=== PATIENT | male | born 1975 | race Caucasian/White ===

== ENCOUNTER 2017-01-24 21:14 | Emergency (ER) | payer OTHER ==
[~2017-01-24] VITALS: Ht 165.1 cm; Wt 113.4 kg
[2017-01-24] MEDS ORDERED: LISINOPRIL40 MG PO (21:23)
[2017-01-24] MEDS ORDERED: METFORMIN500 MG PO (21:23)
[2017-01-24] MEDS ORDERED: HYDR25T PO (21:23)
[2017-01-24] MEDS ORDERED: OMEPRAZOLE40 MG PO (21:24)
[2017-01-24] MEDS ORDERED: Peridex 473 ML473 ML PO (21:28)
[2017-01-24] MEDS ORDERED: CLINDAMYCIN150 MG PO (21:28)
[2017-01-24] MEDS ORDERED: LIDOCAINE HCL100 M1 MM (21:28)
== END 2017-01-24 21:31 | disposition home or self-care (01) ==
LOC: ED 21:14
DX: K02.9 Dental caries, unspecified (principal); R03.0 Elevated blood-pressure reading, without diagnosis of hypertension; F17.200 Nicotine dependence, unspecified, uncomplicated; Z88.0 Allergy status to penicillin; Z88.6 Allergy status to analgesic agent

== ENCOUNTER 2017-02-24 21:55 | Emergency (ER) | payer OTHER ==
[~2017-02-24] VITALS: Ht 165.1 cm; Wt 117.9 kg
[~2017-02-24 21:55] MED LIST: CLINDAMYCIN150 MG PO; HYDR25T PO; LIDOCAINE HCL100 M1 MM; LISINOPRIL40 MG PO; METFORMIN500 MG PO; OMEPRAZOLE40 MG PO; Peridex 473 ML473 ML PO
[2017-02-24] MEDS ORDERED: ANAPROX DS550 MG PO (22:37)
[2017-02-24] MEDS ORDERED: ROBAXIN500 M1 PO (22:37)
== END 2017-02-24 23:35 | disposition home or self-care (01) ==
LOC: ED 21:55
DX: S16.1XXA Strain of muscle, fascia and tendon at neck level, initial encounter (principal); S50.02XA Contusion of left elbow, initial encounter; F17.200 Nicotine dependence, unspecified, uncomplicated; Z88.0 Allergy status to penicillin; Z88.6 Allergy status to analgesic agent; V49.9XXA Car occupant (driver) (passenger) injured in unspecified traffic accident, initial encounter; Y93.89 Activity, other specified; Y92.413 State road as the place of occurrence of the external cause; Y99.9 Unspecified external cause status

== ENCOUNTER 2017-03-14 20:43 | Emergency (ER) | payer OTHER ==
[~2017-03-14] VITALS: Ht 165.1 cm; Wt 117.9 kg
[~2017-03-14 20:43] MED LIST changes: +ANAPROX DS550 MG PO; +ROBAXIN500 M1 PO
[2017-03-14] MEDS ORDERED: 'PARAFON FORTE500 M1 PO (21:03)
[2017-03-14] MEDS ORDERED: PREDNISONE10 MG PO (21:03)
== END 2017-03-14 22:22 | disposition home or self-care (01) ==
LOC: ED 20:43
DX: M54.41 Lumbago with sciatica, right side (principal); R03.0 Elevated blood-pressure reading, without diagnosis of hypertension; F17.200 Nicotine dependence, unspecified, uncomplicated; Z88.0 Allergy status to penicillin; Z88.6 Allergy status to analgesic agent; Z79.899 Other long term (current) drug therapy

== ENCOUNTER 2022-02-21 13:11 | Emergency (ER) | payer OTHER ==
[~2022-02-21 13:11] MED LIST changes: +'PARAFON FORTE500 M1 PO; +PREDNISONE10 MG PO
[2022-02-21] MEDS ORDERED: CLINDAMYCIN HC300 MG PO (14:26)
== END 2022-02-21 15:58 | disposition home or self-care (01) ==
LOC: ED 13:11
DX: K04.7 Periapical abscess without sinus (principal); Z88.0 Allergy status to penicillin; Z88.6 Allergy status to analgesic agent; Z79.899 Other long term (current) drug therapy; Z98.890 Other specified postprocedural states

== ENCOUNTER 2022-08-30 20:25 | Emergency (ER) | payer OTHER ==
[~2022-08-30] VITALS: Ht 165.1 cm; Wt 113.4 kg
[~2022-08-30 20:25] MED LIST changes: +CLINDAMYCIN HC300 MG PO
[2022-08-30] MEDS ORDERED: CLINDAMYCIN HC300 MG PO (20:53)
== END 2022-08-30 21:13 | disposition home or self-care (01) ==
LOC: ED 20:25
DX: K04.7 Periapical abscess without sinus (principal); Z88.0 Allergy status to penicillin; Z88.6 Allergy status to analgesic agent; Z79.899 Other long term (current) drug therapy; Z98.890 Other specified postprocedural states

== ENCOUNTER 2023-02-14 16:56 | Emergency (ER) | payer OTHER ==
[~2023-02-14] VITALS: Ht 165.1 cm; Wt 113.4 kg
== END 2023-02-14 20:12 | disposition home or self-care (01) ==
LOC: ED 16:56
DX: M25.511 Pain in right shoulder (principal); E11.9 Type 2 diabetes mellitus without complications; I10 Essential (primary) hypertension; E78.00 Pure hypercholesterolemia, unspecified; Z88.0 Allergy status to penicillin; Z88.8 Allergy status to other drugs, medicaments and biological substances; Z98.890 Other specified postprocedural states; Z87.891 Personal history of nicotine dependence